=== PATIENT | female | born 1990 | race Caucasian/White ===

== ENCOUNTER 2021-02-02 11:29 | Emergency (ER) | payer OTHER, SELFPAY ==
[2021-02-02 11:34] VITALS: BP 132/86; PULSE 79; RESP 18; TEMP 36.5; O2SAT 98; BMI 23.9
--- NOTE | 2021-02-02 11:40 | DI.RAD.S_ITS ---
PROCEDURE: XR CHEST 1V INDICATIONS: chest pain TECHNIQUE: One view of the chest was acquired. COMPARISON: None. FINDINGS: Surgical changes and devices: None. Lungs and pleura: Lungs are clear. No pleural effusions or pneumothorax. Mediastinum: Mediastinal contours appear normal. Heart size is normal. Bones and chest wall: No suspicious bony lesions. Overlying soft tissues appear unremarkable. IMPRESSION: No acute cardiopulmonary abnormality. Dictated by: Quinton De Los Santos M.D. on 02/02/2021 at 11:19 Approved by: Quinton De Los Santos M.D. on 02/02/2021 at 11:19
[2021-02-02 12:22] LABS: Add Manual Diff / Slide Review NO; Basophils Absolute Auto 0 /uL (0-100); Basophils Percent Auto 0.7 % (0-2); Eosinophils Absolute Auto 0 /uL (0-450); Eosinophils Percent Auto 0.1 % (2-4); Hematocrit 39.7 % (36-46); Hemoglobin 13.5 g/dL (12.0-16.0); Lymphocytes Absolute Auto 700 /uL (1100-4500); Mean Corpuscular HGB Conc 33.9 % (30-36); Mean Corpuscular Hemoglobin 31.5 PG (26-34); Mean Corpuscular Volume 92.9 fL (80-100); Monocytes Absolute Auto 600 /uL (0-900); Monocytes Percent Auto 16.9 % (3-14); Neutrophils Absolute Auto 2000 /uL (1500-7000); Neutrophils Percent Auto 60.3 % (50-75); Platelet Count 177 X10^3/uL (150-400); Red Blood Cell Count 4.28 X10^6/uL (4.0-5.2); Red Cell Distribution Width 12.7 % (11.6-14.8); White Blood Cell Count 3.3 X10^3/uL (4.5-11.0)
[2021-02-02 12:29] LABS: Alanine Aminotransferase 15 IU/L (<35); Albumin 4.3 g/dL (3.5-5.0); Albumin Globulin Ratio 1.4 (1.0-2.8); Alkaline Phosphatase 48 U/L (38-126); Aspartate Aminotransferase 31 IU/L (14-36); BUN Creatinine Ratio 13.4 (6-22); Bilirubin Total 0.3 mg/dL (0.2-1.3); Blood Urea Nitrogen 13 mg/dL (7-17); Calcium 9.3 mg/dL (8.4-10.2); Carbon Dioxide 28 mmol/L (22-32); Chloride 105 mmol/L (98-107); Creatine Kinase 58 U/L (30-135); Estimated Glomerular Filt Rate > 60.0 mL/min (>60); Globulin 3.1 g/dL (1.7-4.1); Glucose 102 mg/dL (70-100); HEMOLYSIS < 15 (0-50); Lipase 136 U/L (23-300); Magnesium 2.1 mg/dL (1.6-2.3); Potassium 4.3 mmol/L (3.4-5.1); Sodium 137 mmol/L (137-145); Total Protein 7.4 g/dL (6.3-8.2)
[2021-02-02 12:39] LABS: Troponin I < 0.012 ng/mL (0.01-0.034)
[2021-02-02 12:44] LABS: COVID19 -Nasal RAPID POSITIVE (Negative)
[2021-02-02 12:47] LABS: Bacteria Urine Many (>30); Culture Indicated Urine Specimen Cultured; Mucus Urine 2+ (Negative); RBC Urine None Seen (0-5/HPF); Squamous Epithelial Cell Urine 1-5 /HPF (0-5/HPF); WBC Urine 1-5/HPF (0-5/HPF)
[2021-02-02 15:02] LABS: D Dimer < 200 ng/mL (<230)
--- NOTE | 2021-02-02 15:11 | ED.SYNCOPE ---
HPI - Syncope General Chief Complaint: Syncope Stated Complaint: fell needs stitches on chin Time Seen by Provider: 02/02/21 14:37 Source: patient Mode of arrival: Ambulatory Limitations: no limitations History of Present Illness HPI narrative: This is a 30-year-old female comes emergency department with complaint of syncope. Patient states she got up this morning which take a bath. When she got out of the water she felt lightheaded. She states she passed out she thinks for couple seconds. Her fiance heard her fall went into the room she was awake. She states she is little bit sweaty moved her to the bedroom open the window. She started to feel better. She has laceration on the bottom side of her chin. Patient states she has some pain jaw but has movement and can bite down. She has had 1 prior syncopal episode when on a treadmill and bending over to pickling grader a water bottle and when she stood up fell backwards and passed out. She denies any chest pain or pressure today. No shortness of breath. She has not any additional diaphoresis. She denies any fevers. No cold cough or congestion. No nausea or vomiting. No diarrhea. No numbness, tingling or weakness. Denies any neck or back pain. She is on oral contraceptives. Denies any past surgical history. No allergies. No tobacco, alcohol or illicit. Related Data Home Medications Medication Instructions Recorded Confirmed norethindrone acetate 1.5 1 tab PO DAILY 12/01/18 12/01/18 mg-ethinyl estradiol 30 mcg tablet (Microgestin) Allergies Allergy/AdvReac Type Severity Reaction Status Date / Time No Known Drug Allergies Allergy Verified 02/02/21 11:34 Review of Systems Review of Systems ROS Unobtainable: All systems reviewed & are unremarkable except as noted in HPI and below Patient History Medical History Abnormal Pap smear of cervix Surgical History Anesthesia [place] teeth removed (~11/2018) Family History Grandfather Diabetes mellitus Grandmother Hyperlipidemia Hypertension Social History Smoking Status: Never smoker Smoking Status: Never smoker alcohol intake frequency: holidays/special occasions only Substance Use Type: does not use Exam Narrative Exam Narrative: GEN: well nourished, well appearing female, alert and oriented x 3, patient appears to be in mild distress. HEENT: Atraumatic, pupils are equal round reactive to light, extraocular movements are intact, nares are clear, TMs are clear with no fluid, there is no conjunctival pallor. Throat is clear without any exudates, erythema, tonsillar enlargement or uvular deviation, patient does not have any bony tenderness on palpation of the facial bones. No malocclusion. Patient has a laceration on the underside of her chin that is about 2.5 cm in length. It does subcutaneous tissue and gapped. HEART: Regular rate and rhythm without murmur, clicks, rubs. Pulses are equal in upper extremities LUNGS:Lungs clear to auscultation, no wheezes, rales, crackles, chest moves symmetrically ABD:bowel sounds normal, soft, non-tender, no guarding, rebound, rigidity, no masses noted, no hepatosplenomegaly :No CVA tenderness BACK: No cervical, thoracic or lumbar vertebral point tenderness. Patient has normal range of motion. Patient's gait is normal. MSCL: Non-tender, no muscle atrophy, muscles strength 5/5 upper and lower extremities, full range of motion, normal gait NEURO:CN 2-12 intact, sensation normal SKIN: see above. Initial Vital Signs Initial Vital Signs: Vital Signs Temperature 97.7 F 02/02/21 11:34 Pulse Rate 79 02/02/21 11:34 Respiratory Rate 18 02/02/21 11:34 Blood Pressure 132/86 02/02/21 11:34 Pulse Oximetry 98 02/02/21 11:34 Procedures Laceration Repair Laceration 1: Time of procedure: 16:12 Site: face (chin) Size (cm): 2.5 Description: linear and irregular Depth: simple, single layer Local Anesthetic: lidocaine 1% Amount of anesthesia used (mL): 2 Pre-repair: wound explored, irrigated extensively and deep structures intact Skin layer closed with: vicryl Size (cm): 4-0 Number of sutures: 4 Technique: simple, interrupted Scores GCS Brittny coma scale eye opening: Spontaneous Frederic coma scale verbal response: Orientated Frederic coma scale motor response: Obey commands Brittny coma scale total score: 15 Course Orders Ordered: ED Orders 02/02/21 11:40 XR chest 1V Stat EKG-12 Lead Stat 02/02/21 11:45 COVID19 -Nasal swab/Pre-Proc Stat 02/02/21 11:50 Complete Blood Count AUTO DIFF Stat Comprehensive Metabolic Panel Stat D Dimer Stat Lipase Stat Magnesium Stat Troponin & CK Cardiac Panel Stat 02/02/21 11:55 Urine Culture Stat Urine Culture Stat Urine Microscopic Stat Discontinued Medications Lidocaine/Sodium Bicarbonate (Lido 1%/Sod Bicarb 8.4% (10ml) 10 Ml Syringe) 10 ml INJ NOW ONE Stop: 02/02/21 15:27 Last Admin: 02/02/21 15:40 Dose: 10 ml Documented by: MAC Vital Signs Vital signs: Vital Signs - 8 hr 02/02/21 11:34 02/02/21 16:22 Temperature 97.7 F Pulse Rate 79 81 Respiratory Rate 18 16 Blood Pressure 132/86 146/82 H Pulse Oximetry 98 97 MDM - Syncope Lab Data Result diagrams: 02/02/21 11:50 02/02/21 11:50 Labs: Lab Results 02/02/21 02/02/21 02/02/21 Range/Units 11:45 11:50 11:50 WBC 3.3 L (4.5-11.0) X10^3/uL RBC 4.28 (4.0-5.2) X10^6/uL Hgb 13.5 (12.0-16.0) g/dL Hct 39.7 (36-46) % MCV 92.9 (80-100) fL MCH 31.5 (26-34) PG MCHC 33.9 (30-36) % RDW 12.7 (11.6-14.8) % Plt Count 177 (150-400) X10^3/uL Neut % (Auto) 60.3 (50-75) % Lymph % (Auto) 22.0 L (25-40) % [place] % (Auto) 16.9 H (3-14) % Eos % (Auto) 0.1 L (2-4) % Baso % (Auto) 0.7 (0-2) % Neut # (Auto) 2000 (1937-4948) /uL Lymph # (Auto) 700 L (3280-3690) /uL [place] # (Auto) 600 (0-900) /uL Eos # (Auto) 0 (0-450) /uL Baso # (Auto) 0 (0-100) /uL D-Dimer (<230) ng/mL Sodium 137 (137-145) mmol/L Potassium 4.3 (3.4-5.1) mmol/L Chloride 105 (98-107) mmol/L Carbon Dioxide 28 (22-32) mmol/L BUN 13 (7-17) mg/dL Creatinine 0.97 (0.52-1.04) mg/dL Estimated GFR > 60.0 (>60) mL/min BUN/Creatinine Ratio 13.4 (6-22) Glucose 102 H (70-100) mg/dL Calcium 9.3 (8.4-10.2) mg/dL Magnesium 2.1 (1.6-2.3) mg/dL Total Bilirubin 0.3 (0.2-1.3) mg/dL AST 31 (14-36) IU/L ALT 15 (<35) IU/L Alkaline Phosphatase 48 (38-126) U/L Total Creatine Kinase 58 (30-135) U/L CK-MB (CK-2) TNP CK-MB (CK-2) Rel Index TNP Troponin I < 0.012 (0.01-0.034) ng/mL Total Protein 7.4 (6.3-8.2) g/dL Albumin 4.3 (3.5-5.0) g/dL Globulin 3.1 (1.7-4.1) g/dL Albumin/Globulin Ratio 1.4 (1.0-2.8) Lipase 136 (23-300) U/L Urine RBC (0-5/HPF) Urine WBC (0-5/HPF) Ur Squamous Epith Cells (0-5/HPF) Urine Bacteria (None) Urine Mucus (Negative) Ur Culture Indicated? SARS-CoV-2 (PCR) Positive H (Negative) 02/02/21 02/02/21 Range/Units 11:50 11:55 WBC (4.5-11.0) X10^3/uL RBC (4.0-5.2) X10^6/uL Hgb (12.0-16.0) g/dL Hct (36-46) % MCV (80-100) fL MCH (26-34) PG MCHC (30-36) % RDW (11.6-14.8) % Plt Count (150-400) X10^3/uL Neut % (Auto) (50-75) % Lymph % (Auto) (25-40) % [place] % (Auto) (3-14) % Eos % (Auto) (2-4) % Baso % (Auto) (0-2) % Neut # (Auto) (2924-5207) /uL Lymph # (Auto) (9379-9162) /uL [place] # (Auto) (0-900) /uL Eos # (Auto) (0-450) /uL Baso # (Auto) (0-100) /uL D-Dimer < 200 (<230) ng/mL Sodium (137-145) mmol/L Potassium (3.4-5.1) mmol/L Chloride (98-107) mmol/L Carbon Dioxide (22-32) mmol/L BUN (7-17) mg/dL Creatinine (0.52-1.04) mg/dL Estimated GFR (>60) mL/min BUN/Creatinine Ratio (6-22) Glucose (70-100) mg/dL Calcium (8.4-10.2) mg/dL Magnesium (1.6-2.3) mg/dL Total Bilirubin (0.2-1.3) mg/dL AST (14-36) IU/L ALT (<35) IU/L Alkaline Phosphatase (38-126) U/L Total Creatine Kinase (30-135) U/L CK-MB (CK-2) CK-MB (CK-2) Rel Index Troponin I (0.01-0.034) ng/mL Total Protein (6.3-8.2) g/dL Albumin (3.5-5.0) g/dL Globulin (1.7-4.1) g/dL Albumin/Globulin Ratio (1.0-2.8) Lipase (23-300) U/L Urine RBC None seen (0-5/HPF) Urine WBC 1-5/hpf (0-5/HPF) Ur Squamous Epith Cells 1-5 /hpf (0-5/HPF) Urine Bacteria Many (>30) H (None) Urine Mucus 2+ H (Negative) Ur Culture Indicated? Specimen cultured SARS-CoV-2 (PCR) (Negative) Point of Care Testing Test Results Negative Urine Dip Bedside Urine Glucose Negative Bedside Urine Bilirubin - Negative Bedside Urine Ketone - Negative Urine Specific [place] 1.025 Bedside Urine Occult Blood - Negative Bedside Urine pH 6.5 Bedside Urine Protein + 30 Bedside Urine Urobilinogen - Negative Bedside Urine Nitrite - Negative Bedside Urine Leukocytes - Negative Esterase Imaging Data Chest x-ray: Radiologist's Impression: [address] [address] XRay Report Signed Patient: Amanda Velazquez MR#: [id number] : 1990 Acct:[id number] Age/Sex: 30 / F Date of Service: 02/02/21 Loc: ED Accession Number: [id number] ?? Procedure: XR chest 1V Ordering Provider: Cheyanne Morton D.O. PROCEDURE:? XR CHEST 1V ? INDICATIONS:? chest pain ? TECHNIQUE:? One view of the chest was acquired.? ? COMPARISON:? None. ? FINDINGS:? ? Surgical changes and devices:? None.? ? Lungs and pleura:? Lungs are clear.? No pleural effusions or pneumothorax.? ? Mediastinum:? Mediastinal contours appear normal.? Heart size is normal.? ? Bones and chest wall:? No suspicious bony lesions.? Overlying soft tissues appear unremarkable.? ? IMPRESSION:? No acute cardiopulmonary abnormality. ? ? Dictated by: Quinton De Los Santos M.D. on 02/02/2021 at 11:19 ? ? Approved by: Quinton De Los Santos M.D. on 02/02/2021 at 11:19?? ECG Data Attestation: I personally reviewed and interpreted this ECG as follows: Prior ECG tracings: not available for review Interpretation: Sinus rhythm with sinus arrhythmia. Rate of 78 ME 120 QRS 74 QTC 460. Three of inversion in lead 3. No other T-wave changes noted. MDM Narrative Medical decision making narrative: This is a 30-year-old female who had a syncopal episode after being in the bath earlier today. She felt lightheaded when she was getting up. She passed out her chin. She had likely very short episode of loss of consciousness. Her fiance was in the house heard her fall immediately into the room and states she was awake when he came in. He moved her to the other. She has had minimal symptoms but is COVID positive today. She is not tachycardic, not hypoxic or hypotensive. Her EKG, chest x-ray and labs are reassuring. She is unvaccinated. She does not meet criteria for monoclonal antibodies as an outpatient. Patient D-dimer is negative. She he patient is able to ambulate without issue here in the department. Her laceration was repaired all questions answered. Patient was cautioned to return if any additional symptoms or concerning changes. Discharge Plan Departure Patient Disposition: Home Clinical Impression: COVID-19 virus infection, Chin laceration, Syncope Instructions: DI for Laceration Repair -- Simple, DI for COVID-19 (Suspected or Confirmed ) Activity Restrictions/Additional Instructions: *You have been diagnosed with covid infection. If you wish you may obtain a pulse oximeter for use at home to monitor. Please return to the ER if your pulse oximeter shows an O2 saturation less than 94%. You have 4 sutures present but they are absorbable and should not require removal. Wound Care: Keep wound(s) clean and dry. Wash daily with soap and water only. Do not use over the counter products (alcohol or peroxide)on the wounds unless instructed by a physician. If wound condition worsens (increased/expanding redness, developing fluid blisters, or worsening pain), either contact your doctor for an urgent re-assessment , or return to the Emergency Department. Return to the Emergency Department for any new or worsening symptoms. Return if fever greater than 100.4 Fahrenheit, increased swelling, increasing pain or worsening symptoms such as increased discharge or spreading redness. Severe headaches, chest pain, shortness of breath, vomiting, worsening pain anterior chin or jaw. *What to do: * per recommendations from the CDC and the [facility] Department of Health * stay home except to get medical care. Restrict activities outside your home, except for getting medical care. Do not go to work, school, or public areas. Avoid using public transportation, ride sharing, or taxis. * separate yourself from other people in your home. * call ahead before visiting your doctor * Wear a face mask * Cover your coughs and sneezes * Clean your hands often * Avoid sharing household items * Clean all high-touch services every day * Monitor your symptoms and seek prompt medical attention if your illness is worsening, particularly with difficulty in breathing. Discussed continuing home isolation * for individuals with symptoms who are confirmed or suspected cases of COVID-19 and are directed to care for themselves at home, discontinue home isolation under the following conditions: 1. At least 72 hours have passed since recovery, defined as resolution of fever without the use of fever reducing medications, and improvement in respiratory symptoms (cough, shortness of breath) AND, 2. At least 7 days have passed since symptoms 1st appeared Individuals with laboratory confirmed COVID-19 who have not had any symptoms may discontinue home isolation when at least 7 days have passed since the date of their 1st COVID-19 diagnostic test and have had no subsequent illness Prescriptions: No Action Microgestin 1.07/09 (21) 1.5-30 mg-mcg tablet 1 tab PO DAILY 0RF Referrals: Elisha Jovel PA-C [Primary Care Provider] -
[2021-02-02] MEDS: LIDO 1%/SOD BICARB 8.4% (10ML) 10 ML SYRINGE INJ (15:40)
[2021-02-02 16:22] VITALS: BP 146/82; PULSE 81; RESP 16; O2SAT 97
== END 2021-02-02 16:22 | disposition home or self-care (01) ==
PROVIDERS: Emergency Provider Emergency Medicine; PCP Physician Assistant
DX: S01.81XA Laceration without foreign body of other part of head, initial encounter (principal); R55 Syncope and collapse; U07.1 COVID-19; I49.8 Other specified cardiac arrhythmias; W18.30XA Fall on same level, unspecified, initial encounter
CPT/HCPCS: 12011; 36415; 71045; 80053; 81003; 81015; 81025; 82550; 83690; 83735; 84484; 85025; 85379; 87086; 87635; 93005; 99284; C9803

== ENCOUNTER → 2022-04-08 06:52 | Outpatient (CLI) | payer OTHER, SELFPAY ==
--- NOTE | 2022-04-08 | DI.US.S_ITS ---
PROCEDURE: US OB >= 14 WEEKS FETUS INDICATIONS: 20WK ANATOMY SCAN OUTSIDE/PRIOR DATING DATA: Last menstrual period (LMP): 11/25/2021. LMP-based estimated date of delivery (SCARLETT): 09/01/2022 First dating scan (date and location): 04/08/2022 Estimated date of delivery (SCARLETT) from first dating scan: 08/31/2022. The calculations are made using the study generated SCARLETT of 08/31/2022. TECHNIQUE: Real-time scanning was performed of the fetus, with image documentation and biometric measurements. Endovaginal scanning: Not indicated COMPARISON: None. FINDINGS: General: A single living intrauterine gestation is present. Presentation: Vertex Placenta: Placental position is posterior, without previa. Amniotic fluid index: 9.0 cm, normal range is 5-24 cm. Single deepest vertical pocket is 2.6 cm. heart rate: 130 beats per minute. Maternal cervical canal: 3.6 cm long. Normal lower limit is 2.5 cm. biometrics: Biparietal diameter: 4.5 cm, 19 weeks, 4 days. Head circumference: 16.9 cm, 19 weeks, 4 days. Abdominal circumference: 13.6 cm, 19 weeks, 0 day. Femur length: 3.0 cm, 19 weeks, 1 day. Clinically estimated gestational age: 19 weeks, 1 day Composite gestational age from present scan: 19 weeks, 2 days Estimated weight and percentile: 276 g, 45% Anatomic survey: Neuro: Ventricles are non-dilated at less than 10 mm. Cisterna magna is normal at 3-11 mm. Cerebellum is normal in size and morphology. Nuchal skin fold: Normal at less than 6 mm between 14-21 weeks gestational age. Face: Nose and lips, facial profile are normal. Spine: No evidence for spina bifida. Heart: 4-chambered heart is present, with normal ventricular outflow tracts. Diaphragm: Diaphragm is intact. Stomach: Left-sided stomach is present. Kidneys: No hydronephrosis. Normal is less than 5 mm in 2nd trimester, less than 7 mm in 3rd trimester. Cord: 3-vessel cord has orthotopic insertion. Bladder: Normal in size. Extremities: All 4 extremities identified. IMPRESSION: 1. Single live intrauterine gestation with fetus in vertex presentation. heart rate is 130 beats per minute. Normal amount of amniotic fluid. Normal growth. Estimated weight is at 45%. 2. Normal anatomic survey. We strive to produce accurate, complete, and clear reports of imaging services. To assist us in improving patient care, this report was composed using standard report templates and voice recognition software. Therefore, it may contain abnormal punctuation, insertions and/or omissions. Occasional wrong-word or sound-alike substitutions may occur. Though we review the report and make efforts to correct it, we do recommend that the report be read carefully in proper context to recognize any text inaccuracies. Dictated by: Abel Sandra M.D. on 04/08/2022 at 8:41 Approved by: Abel Sandra M.D. on 04/08/2022 at 8:43
== END ==
PROVIDERS: PCP Physician Assistant; Referring Provider Advanced Practice Midwife; Visit Provider Advanced Practice Midwife
DX: Z34.02 Encounter for supervision of normal first pregnancy, second trimester (principal); Z3A.19 19 weeks gestation of pregnancy
CPT/HCPCS: 76811

== ENCOUNTER 2022-08-29 16:48 | Inpatient (IN) | payer OTHER, SELFPAY ==
--- NOTE | 2022-08-29 17:07 | P.HPOB_ITS ---
OB HPI Date/Time Date of admission: 08/29/22 Date Patient Seen: 08/29/22 Time Patient Seen: 17:07 History of Present Condition Chief complaint: OB CHECK : 1 Para: 0 Estimated Date of Delivery: 09/01/22 Estimated Gestational Age (weeks): 39.4 Narrative: Amanda Overton is a 31 year old female @ [id number] by LMP concordant with early US who presents for evaluation of PROM. Has been feeling mild, irregular contractions for 3 days. Noticed leaking of green fluid at 1530 today and then continued leaking of clear fluid. +FM. No vaginal bleeding. Uncomplicated care with CNMs until last appointment when she started measuring S<D for which she has a growth US scheduled tomorrow. Desires low intervention . is present and supportive. History of Present care: good care, initiated at week # (9), number of visits (9) and pounds weight gain (38) Dating criteria: LMP confirmed by 1st trimester US Ultrasounds: normal mid trimester US Obstetrical complications: none Medical complications: none Preadmission Labs Blood type: A (+) positive -: Antibody screen: negative, GBS status: positive, HBsAG: negative, HIV: negative and RPR/VDLR: negative -: Chlamydia screen: not detected and Gonorrhea screen: not detected -: Rubella: immune and Varicella: immune HCT: 37.2 HCAB: negative 1 hr GTT: 122 Evaluation Evaluation Baseline heart rate: 120 Variability: Moderate (11-25) monitor accelerations: Present Monitor Decelerations: Absent Contraction Frequency (minutes): 5 Uterine Contraction Intensity: Mild Status: Category l Dilation (cm): 3 Effacement (%): 80 station: -1 Comments: Clear fluid on pad and on glove with exam. [facility] Medical History Abnormal Pap smear of cervix Surgical History Anesthesia [place] teeth removed (~11/2018) Family History Grandfather Diabetes mellitus Grandmother Hyperlipidemia Hypertension Social History (Reviewed 07/20/23 @ 17:19 by JANES Crow Smoking Status: Never smoker Meds Home Medications and Allergies Home Medications Medication Instructions Recorded Confirmed Type No Known Home Medications 08/29/22 08/29/22 History Allergies Allergy/AdvReac Type Severity Reaction Status Date / Time No Known Drug Allergies Allergy Verified 02/02/21 11:34 Review of Systems Review of Systems ROS: Yes All systems reviewed with the patient and are negative except as otherwise documented OB Exam Vital signs Blood Pressure: 136/91 Pulse Rate: 76 Temperature: 36.7 F Resp Effort & Inspection: normal respiratory effort and able to speak in complete sentences Auscultation: clear to auscultation bilaterally Cardio Rate: regular rate Rhythm: regular rhythm Heart Sounds: S1 normal and S2 normal Presentation: vertex Objective Labs 08/29/22 17:40 08/29/22 17:40 Assessment and Plan Assessment and Plan Assessment and Plan narrative: A: Term [place] PROM Suspected meconium stained amniotic fluid Antibioitcs indicated for GBS prophylaxis Elevate BP without diagnosis of HTN Cat II FHR P: Admit, routine orders with preeclampsia panel added to admission labs. 500mL LR IVFB now. Ampicillin for GBS prophylaxis. Counseled on options for active vs expectant management of PROm and she elects expectant management. Counseled patient on recommendation to remain on unit given possible meconium staining of fluid. Patient declines this and asks to go back home for a few hours before her next dose of antibiotics. As long as FHR remain Cat I during ampicillin administration, patient may walk and return in 2 hours since she is not yet in active labor. Encouraged her to return HIRAM if meconium stained fluid or decreased FM noted and she agrees.
[2022-08-29 17:23] VITALS: BP 136/91; PULSE 76; TEMP 2.6; TEMP 36.7
[2022-08-29] MEDS: LACTATED RINGERS 1,000 ML 100 ML IV (17:40)
[2022-08-29 18:01] LABS: Add Manual Diff / Slide Review NO; Basophils Absolute Auto 100 /uL (0-100); Basophils Percent Auto 0.6 % (0-2); Eosinophils Absolute Auto 0 /uL (0-450); Eosinophils Percent Auto 0.4 % (2-4); Hematocrit 38.2 % (36-46); Lymphocytes Absolute Auto 1700 /uL (1100-4500); Lymphocytes Percent Auto 17.6 % (25-40); Mean Corpuscular HGB Conc 33.9 % (30-36); Mean Corpuscular Hemoglobin 30.8 PG (26-34); Mean Corpuscular Volume 91.1 fL (80-100); Monocytes Absolute Auto 800 /uL (0-900); Monocytes Percent Auto 7.9 % (3-14); Neutrophils Absolute Auto 7100 /uL (1500-7000); Neutrophils Percent Auto 73.5 % (50-75); Platelet Count 208 X10^3/uL (150-400); Red Cell Distribution Width 12.5 % (11.6-14.8); White Blood Cell Count 9.6 X10^3/uL (4.5-11.0)
[2022-08-29] MEDS: AMPICILLIN 2,000 MG in SODIUM CHLORIDE 0.9% 100 ML 200 MG IV (18:04)
[2022-08-29 18:07] LABS: Aspartate Aminotransferase 36 IU/L (14-36); Blood Urea Nitrogen 11 mg/dL (7-17); Estimated Glomerular Filt Rate > 60 mL/min (>60); Uric Acid 5.1 mg/dL (2.5-6.2)
[2022-08-29 19:56] VITALS: BP 133/86
[2022-08-29] MEDS: AMPICILLIN 1,000 MG in SODIUM CHLORIDE 0.9% 100 ML 200 MG IV (21:57)
--- NOTE | 2022-08-30 01:27 | PM.OBPNLAB ---
Date/Time Date Patient Seen: 08/29/22 Time Patient Seen: 22:00 Pain Control Pain control: tolerating well Comments: Went home and ate and took a nap, now back for her second dose of antibioitcs. If everything baby's heart rate and her vital signs are good, she plans to leave again after this dose is completed and return before the next dose is due. Continues to leak scant amounts of clear fluid. VS: BP 131/84, HR 68bpm, T 36.5C Tmporal Pelvic Exam Effacement (%): 80 station: -1 Comments: CE deferred, not in labor Contractions Monitor mode: External Pitocin rate (mU/min): 0 Contraction frequency (min): 5 Contraction duration (min): 1 Contraction pattern: Irregular Contraction intensity: Mild Status status: Category l Heart Rate Baseline: 120 Monitor Accelerations: Present Monitor Decelerations: Absent Monitor Variability: Moderate Assessment and Plan Assessment: other (PROM x 6.5 hours without sx of infection, not in labor) Comments: Encouraged patient to stay on unit and patient strongly declines. She agrees to come back for next dose of antibiotics and sooner, if concern for movement, change in fluid or fever. Reassess in 4 hours .
--- NOTE | 2022-08-30 02:01 | PM.OBPNLAB ---
Date/Time Date Patient Seen: 08/30/22 Time Patient Seen: 02:01 Pain Control Pain control: tolerating well Comments: Was able to go home and take a nap. Continues to contract mildly, but doesn't feel like there's been much change. Continues leak clear fluid. Strongly desires to go home again between doses of antibioitcs. VS: 123/75mmhg, HR 66, T 36.6C Temporal Pelvic Exam Dilation (cm): 3 Effacement (%): 80 station: -1 Comments: CE deferred, not in labor Contractions Monitor mode: External Contraction frequency (min): 8 Contraction duration (min): 1 Contraction pattern: Irregular Contraction intensity: Mild Status status: Category l Heart Rate Baseline: 115 Monitor Accelerations: Present Monitor Decelerations: Absent Monitor Variability: Moderate Assessment and Plan Assessment: other (PROM x11 hours without sx of infection) Plan: continuous present management Comments: Continue expectant management of PROM with GBS prophylaxis @ q4 hours. Patient plans to leave and return before next dose is due and is aware of reasons to return sooner. Reassess in 4 hours or sooner, PRN.
[2022-08-30] MEDS: AMPICILLIN 1,000 MG in SODIUM CHLORIDE 0.9% 100 ML 200 MG IV ×4 (02:03→14:12)
--- NOTE | 2022-08-30 06:47 | PM.OBPNLAB ---
Date/Time Date Patient Seen: 08/30/22 Time Patient Seen: 06:30 Pain Control Pain control: tolerating well Comments: Was again able to sleep at home and feels ready for labor. Leaking fluid remains clear. No vaginal bleeding. Partner is supportive at her side. VS: BP 118/72, HR 66bpm, T 36.7C Temporal Pelvic Exam Dilation (cm): 3 Effacement (%): 80 station: -1 Comments: deferred, not in labor Contractions Monitor mode: External Pitocin rate (mU/min): 0 Contraction frequency (min): 14 Contraction duration (min): 2 Contraction pattern: Regular Contraction intensity: Mild Status status: Category l Heart Rate Baseline: 120 Monitor Accelerations: Present Monitor Decelerations: Absent Assessment and Plan Assessment: other (PROM x27 hours without sx of infection) Comments: PCN dose #4 started. Discussed options again and patient continues to decline pitocin and elects to begin pumping to help increase contractions. Patient agrees to stay in house, except for walks, at this point. Reassess in 4 hours or sooner, PRN.
--- NOTE | 2022-08-30 13:31 | PM.OBPNLAB ---
Date/Time Date Patient Seen: 08/30/22 Time Patient Seen: 13:32 Pain Control Pain control: tolerating well Comments: Ate breakfast at 0830 and then did one cycle of breast pumping x 20 minutes. Contractions slowly progressed in frequency and intensity, becoming strong at 1130. She labored in the shower and then the tub with mild relief. Coping well with her providing continuous labor support. Now on hands and knees with the CUB in the bed, consenting to CE. VS: BP 128/66mmHg, HR 75bpm, T 97.7F Temporal Pelvic Exam Dilation (cm): 6 Effacement (%): 100 station: 0 Amniotic membrane status: Leaking (clear) Contractions Monitor mode: External Pitocin rate (mU/min): 0 Contraction frequency (min): 3 Contraction duration (min): 1 Contraction pattern: Regular Contraction intensity: Strong/Firm Status Heart Rate Baseline: 115 Comments: FHR remains reassuring by intermittent auscultation. Assessment and Plan Assessment: active labor and other (PROM x22 hours without sx of infection, Adequate GBS prophylaxis x 5 doses of PCN) Comments: Continue expectant management of labor. Labor support PRN. Reassess in 4 hours or sooner, PRN.
--- NOTE | 2022-08-30 17:49 | PM.OBPRVD ---
Events: Premature Rupture Membrane Labor & Delivery Delivery date: 08/30/22 Intrapartal Events: None Cervical ripening method: none Induction method: other (nipple stimulation) Delivery monitor: external FHT Route of delivery: L&D Laceration Description: Superficial Quantitative Blood Loss: 302 Anesthesia Type: Epidural Narrative: Jg labored well without augmentation or anesthesia. Presumed complete with spontaneous urge to push at 1544. Slow descent with strong maternal efforts and coaching. Reassuring FHTs by intermittent auscultation throughout labor and second stage. NSVB of a vigorous baby boy in LACI position with a compound right hand, single loose nuhal cord and easy delivery of the shoulders. Patient was standing at the bedside for the and her son was passed through her legs to her arms by CNM and FOB, then she was assisted into bed with her son in her arms. 30 units of pitocin in 500mL LR was started at 250mL/hr for AMTSL. After cessation of pulsation, the cord was double clamped by CNM and cut by FOB. Cord blood hold sample was collected. Gentle cord traction, a maternal push and fundal assage led to spontaneous, Schultze delivery of an apparently intact placenta, membranes and 3VC. Fundus immediately firm and bleeding scant. Inspection revealed a hemostatic, superficial laceration to the right labia and introitus. QBL 302. Both mother and baby stable and skin to skin as I left the room. [place] Baby 1: Infant gender: Male Presentation: vertex Position: Left Occiput Anterior Placenta delivery description: Spontaneous Cord Vessel Description: 3 Vessels, Nuchal Cord and Loose score (1 min): 7 score (5 min): 9 weight: 2.816 kg Plan for aftercare: Routine care
[2022-08-30] MEDS: KETOROLAC 30 MG/ML VIAL IV (18:50)
[2022-08-31] MEDS: IBUPROFEN 600 MG TABLET PO (07:57)
--- NOTE | 2022-08-31 12:39 | P.DS_ITS ---
Discharge Providers Provider Date of admission: 08/29/22 16:48 Discharge Date: 08/31/22 Primary care physician: Elisha Jovel PA-C Consults: 08/31/22 17:47 Consult to Anesthesiologist/Physician Routine Comment: Discharge provider: Mirian Torres CNM Summary Hospital Course Date Patient Seen: 08/31/22 Time Patient Seen: 12:40 Diagnoses: O80 Hospital Course: PPD1: Stable s/p unmedicated NSVB. Voiding, ambulating and independently. Tolerating a general diet. is going well with no nipple tenderness. Vaginal bleeding is moderate without clots. Pain is well controlled with ibuprofen and Tylenol. Partner is present and supportive and she will have lots of help at home. Peripartum Data Delivery Method: Natural Vaginal Laceration Description: None Episiotomy description: None Procedures: O80 complications: none 1: Gender: Male Disposition of : home Discharge Diagnosis (1) Encounter for full-term uncomplicated delivery: Status: Acute Problem Details: Routine course (2) PROM with onset of labor within 24 hours of rupture: Status: Acute Status at Discharge Cognitive/behavioral status at discharge: oriented Functional status at discharge: independent ambulation Overall status at discharge: patient is progressing back to baseline Time Spent with Patient Time attestation: Total time spent providing and/or coordinating discharge services: Objective Labs 08/29/22 17:40 08/29/22 17:40 Exam Vital Signs (past 8 hours): BP 113/62mmHg, HR 64, RR 17, T 97.6F Temporal Other: Fundus firm @ u-1, lochia normal, without clots. Perineum intact with mild edema. Discharge Plan Discharge Plan Patient Disposition: Home Discharge orders & Medications Prescriptions: New ibuprofen 600 mg Tablet 600 mg PO Q6HR PRN (Reason: Pain, Mild (1-3)) 14 Days Qty: 60 0RF No Action No Known Home Medications Follow up/Referrals: Mirian Torres CNM [[facility]] - (Follow-up phone call 09/13/22 @ 10:00am Follow-up in office 10/11/22 @ 09:45am ) Elisha Jovel PA-C [Primary Care Provider] - Diet/Activity/Treatments Diet: Diet as Tolerated and Regular Activity: pelvic rest x 6 weeks Skin/Wound/Dressing Care Report to your healthcare provider any signs of infection, such as:: chills, fever, increased pain, unusual drainage and unusual redness Visit Report/Discharge Packet Instructions: DI for Depression Stand Alone Forms: Patient Portal/API, Stroke Signs & Symptoms Discharge Data Primary Care Provider: Elisha Jovel
== END 2022-08-31 14:00 | disposition home or self-care (01) | DRG 807 ==
PROVIDERS: Admitting Provider Nurse Practitioner Obstetrics & Gynecology; PCP Physician Assistant; Referring Provider Nurse Practitioner Obstetrics & Gynecology; Visit Provider Nurse Practitioner Obstetrics & Gynecology
DX: O42.12 Full-term premature rupture of membranes, onset of labor more than 24 hours following rupture (principal); Z37.0 Single live birth; Z3A.39 39 weeks gestation of pregnancy; O99.824 Streptococcus B carrier state complicating childbirth
CPT/HCPCS: 36415; 59050; 84450; 84550; 85025; 86850; 86900; 86901; G0379; J0290; J1885

== ENCOUNTER → 2023-10-21 13:36 | Outpatient (CLI) | payer SELFPAY ==
[2023-10-21 14:34] LABS: HCG Quantitative /Beta subunit 14829 mIU/mL
== END ==
PROVIDERS: Referring Provider Nurse Practitioner Obstetrics & Gynecology; Visit Provider Nurse Practitioner Obstetrics & Gynecology
DX: N91.2 Amenorrhea, unspecified (principal)
CPT/HCPCS: 36415; 84702

== ENCOUNTER → 2023-10-22 12:04 | Outpatient (CLI) | payer SELFPAY ==
--- NOTE | 2023-10-22 12:10 | DI.US.S_ITS ---
PROCEDURE: US OB <= 14 WEEKS FETUS INDICATIONS: DATING AND VIABILITY. IUD KYLEENA SURVEILLANCE (1 YEAR). OUTSIDE/PRIOR DATING DATA: Last menstrual period (LMP): 09/11/2023. LMP-based estimated date of delivery (SCARLETT): 06/17/2024. First dating scan (date and location): 10/22/2023. Estimated date of delivery (SCARLETT) from first dating scan: 06/17/2024. TECHNIQUE: Real-time scanning was performed of the fetus and maternal pelvic organs, with image documentation. Endovaginal scanning was also performed to better visualize the fetus and maternal ovaries. COMPARISON: None. FINDINGS: Embryo: Single live intrauterine is identified with crown-rump length measuring 3 mm corresponding to 5 weeks 6 days Heart rate: 106 beats per minute Suspected small perigestational hemorrhage measuring 9 mm. IUD is not visualized. Maternal organs: Ovaries demonstrate left corpus luteal cyst.. IMPRESSION: Single live intrauterine with gestational age today of 5 weeks 6 days. No visualized IUD. Recommend followup imaging at 20-22 weeks for dates and anatomy. We strive to produce accurate, complete, and clear reports of imaging services. To assist us in improving patient care, this report was composed using standard report templates and voice recognition software. Therefore, it may contain abnormal punctuation, insertions and/or omissions. Occasional wrong-word or sound-alike substitutions may occur. Though we review the report and make efforts to correct it, we do recommend that the report be read carefully in proper context to recognize any text inaccuracies. Dictated by: Radha Arnold M.D. on 10/22/2023 at 17:03 Approved by: Radha Arnold M.D. on 10/22/2023 at 17:04
== END ==
PROVIDERS: Referring Provider Nurse Practitioner Obstetrics & Gynecology; Visit Provider Nurse Practitioner Obstetrics & Gynecology
DX: Z34.91 Encounter for supervision of normal pregnancy, unspecified, first trimester (principal); Z3A.01 Less than 8 weeks gestation of pregnancy; Z30.431 Encounter for routine checking of intrauterine contraceptive device
CPT/HCPCS: 76801; 76817

== ENCOUNTER → 2024-01-29 11:04 | Outpatient (CLI) | payer OTHER, SELFPAY ==
--- NOTE | 2024-01-29 | DI.US.S_ITS ---
PROCEDURE: US OB >= 14 WEEKS FETUS INDICATIONS: 20wk anatomy scan OUTSIDE/PRIOR DATING DATA: Last menstrual period (LMP): 09/11/2023. LMP-based estimated date of delivery (SCARLETT): 06/17/2024. First dating scan (date and location): 10/22/2023. Estimated date of delivery (SCARLETT) from first dating scan: 06/17/2024. The calculations are made using the ultrasound and working SCARLETT of 06/17/2024. TECHNIQUE: Real-time scanning was performed of the fetus, with image documentation and biometric measurements. Endovaginal scanning: Not performed COMPARISON: [facility], , OB >= 14 WEEKS FETUS, 04/08/2022, 7:00. FINDINGS: General: A single living intrauterine gestation is present. Presentation: Vertex. Placenta: Placental position is anterior, without previa. Amniotic fluid index: 13.6 cm, normal range is 5-24 cm. Single deepest vertical pocket is 4.0 cm. heart rate: 135 beats per minute. Maternal cervical canal: 3.8 cm long. Normal lower limit is 2.5 cm. biometrics: Biparietal diameter: 4.9 cm, 20 weeks 6 days Head circumference: 18.7 cm, 21 weeks 0 days Abdominal circumference: 16.6 cm, 21 weeks 4 days Femur length: 3.3 cm, 20 weeks 1 day Clinically estimated gestational age: 20 weeks 0 day Composite gestational age from present scan: 20 weeks 6 days Estimated weight and percentile: 389 g, 90 second percentile Anatomic survey: Neuro: Ventricles are non-dilated at less than 10 mm. Cisterna magna is normal at 3-11 mm. Cerebellum is normal in size and morphology. Nuchal skin fold: Normal at less than 6 mm between 14-21 weeks gestational age. Face: Nose and lips, facial profile are normal. Spine: No evidence for spina bifida. Heart: 4-chambered heart is present, with normal ventricular outflow tracts. Diaphragm: Diaphragm is intact. Stomach: Left-sided stomach is present. Kidneys: No hydronephrosis. Normal is less than 5 mm in 2nd trimester, less than 7 mm in 3rd trimester. Cord: 3-vessel cord has orthotopic insertion. Bladder: Normal in size. Extremities: All 4 extremities identified. IMPRESSION: 1. Living 2nd trimester intrauterine with no sonographic evidence of complications. Current ultrasound age is 6 days greater than clinical age. 2. Normal 2nd trimester anatomy study. We strive to produce accurate, complete, and clear reports of imaging services. To assist us in improving patient care, this report was composed using standard report templates and voice recognition software. Therefore, it may contain abnormal punctuation, insertions and/or omissions. Occasional wrong-word or sound-alike substitutions may occur. Though we review the report and make efforts to correct it, we do recommend that the report be read carefully in proper context to recognize any text inaccuracies. Dictated by: Sheng Oswald M.D. on 01/29/2024 at 21:12 Approved by: Sheng Oswald M.D. on 01/29/2024 at 21:15
== END ==
LOC: US 11:08
PROVIDERS: Referring Provider Nurse Practitioner Obstetrics & Gynecology; Visit Provider Nurse Practitioner Obstetrics & Gynecology
DX: Z34.92 Encounter for supervision of normal pregnancy, unspecified, second trimester (principal); Z3A.20 20 weeks gestation of pregnancy
CPT/HCPCS: 76811

== ENCOUNTER 2024-04-06 11:40 | Observation (INO) | payer OTHER, SELFPAY ==
[2024-04-06 11:58] LABS: Appearance Urine UA SL CLOUDY; Bilirubin Urine UA NEGATIVE (NEGATIVE); Color Urine UA YELLOW; Glucose Urine UA NEGATIVE (Negative); Ketones Urine UA NEGATIVE (NEGATIVE); Leukocyte Esterase Urine UA 3+ (NEGATIVE); Nitrite Urine UA NEGATIVE (Negative); Occult Blood Urine UA NEGATIVE (Negative); Protein Urine UA NEGATIVE (Negative); Urobilinogen Urine UA 0.2 E.U./dL (0.2)
[2024-04-06 12:01] LABS: Urine Volume 10mL (spun); pH Urine UA 6.5 (4.5-8.0)
[2024-04-06 12:02] LABS: Bacteria Urine Many (>30); Culture Indicated Urine Specimen Cultured; RBC Urine None Seen (0-5/HPF); Squamous Epithelial Cell Urine 5-10 /HPF (0-5/HPF); WBC Urine 10-30/HPF (0-5/HPF)
[2024-04-06] MEDS: TERBUTALINE 1 MG/ML VIAL 0.25 MG SUBCUT ×2 (12:26→17:31)
[2024-04-06] MEDS: BETAMETHASONE 30 MG/5 ML MDV 12 MG IM (12:28)
[2024-04-06] MEDS: LACTATED RINGERS 1,000 ML 1000 ML IV (12:33)
--- NOTE | 2024-04-06 12:42 | PM.OBHP.1 ---
OB HPI Date/Time Date of admission: 04/06/24 Date Patient Seen: 04/06/24 Time Patient Seen: 12:15 History of Present Condition Chief complaint: OBS : 2 Para: 1 Estimated Date of Delivery: 06/17/24 Estimated Gestational Age (weeks): 29.5 Narrative: Amanda Overton is a 33 year old female at 29weeks 5days. Messaged this am w/shandra barroso contractions with pain rated 8 out of 10, lasting 30 seconds every 5-10min with some light yellow discharge. Planning to come to clinic to be seen at noon. Called at 1122 CNM recommended going to hospital for evaluation. In triage at 1145 contractions every 4-9minutes, 40-60seconds, breathing through contractions. Present on the unit at 1145 contractions mild to moderate to palpate, not picked up well on toco; no rupture of membranes or bleeding. Urinalysis +Leuk estrase, +WBCs, denies dysuria, or urgency has frequency. FHR tracing category 2 with moderate variability and non-recurrent variable decelerations. History of Present care: good care, initiated at week # (8), number of visits (5) and pounds weight gain (25) Dating criteria: LMP confirmed by 1st trimester US Obstetrical complications: labor Medical complications: none Narrative: Speculum done for FFN, visible membranes, dark hair visible at os, SVE 4cm, BBOW, 90% effaced/mid position. Terbutaline subQ (given 1226), betamethasone x1 (1228), and ampicillin 2 g ordered stat and given, started at 1323. GBS swab collected. Magnesium sulfate 4 g bolus started at 1348. Consult with Dr Vidal. Spoke at 1229 to pediatric provider Taylor Wren at [facility], peds team activated with eta 1400. Recheck SVE at 1335: 3.5/90/-2/mid position. Called [facility], spoke to core cutter and reamer and Dr. Hernandez who accepted transfer. Ground transport not available for 4hours, so [facility] notified, and ETA 1530. [facility] team arrived at 1435, waiting until maternal transport team arrives. Preadmission Labs Blood type: A (+) positive -: Antibody screen: negative, GBS status: unknown (collected today), HBsAG: negative, HIV: negative, HSV 1: negative, HSV 2: negative and RPR/VDLR: negative -: Chlamydia screen: not detected and Gonorrhea screen: not detected -: Rubella: immune and Varicella: immune HCT: 37.4 HCAB: negative PAP: Normal (2021) Cell-free DNA: Negative for Trisomy 13, 18 and 21 1 hr GTT: 100 Prior (ies) History: at 39w5d Hx # Term Pregnancies: 1 Hx # Pregnancies: 0 Number of Living Children: 1 Multiple births: 0 Spontaneous abortions: 0 Ectopic pregnancies: 0 Elective abortions: 0 Evaluation Evaluation Baseline heart rate: 135 Variability: Moderate (11-25) monitor accelerations: Present Monitor Decelerations: Variable Contraction Frequency (minutes): 5 (1.5-7 x 30-60 sec) Uterine Contraction Intensity: Moderate Category of Tracing: Appropriate for gestational age Status: Category ll Dilation (cm): 3.5 Effacement (%): 90 Dilation: 3-4 cm Effacement: >/=80% station: -2 Position of cervix: mid Consistency: soft Winston score: 9 [facility] Medical History (Updated 04/06/24 @ 14:20 by Tara Jack CNM, RADHA) PROM with onset of labor within 24 hours of rupture Encounter for full-term uncomplicated delivery COVID-19 virus infection Abnormal Pap smear of cervix Surgical History Anesthesia [place] teeth removed (~11/2018) Family History Grandfather Diabetes mellitus Grandmother Hyperlipidemia Hypertension Social History Smoking Status: Never smoker Meds Home Medications and Allergies Allergies Allergy/AdvReac Type Severity Reaction Status Date / Time No Known Drug Allergies Allergy Verified 02/02/21 11:34 Review of Systems Review of Systems Narrative: as per HPI OB Exam Narrative Exam Narrative: VS: BP 132/81, HR 96, temp 35.8C, O2 sat 99% HENMT Head: normal to inspection and normocephalic Mouth: lip normal, tongue normal and moist mucous membranes Eyes General: appearance normal, both eyes and all related structures Resp Effort & Inspection: normal respiratory effort Auscultation: clear to auscultation bilaterally Cardio Rate: regular rate Rhythm: regular rhythm Heart Sounds: S1 normal and S2 normal Extremities Lower extremity: Yes normal to inspection GI Inspection: normal to inspection Palpation: Yes soft External Female Exam: Yes normal external appearance Speculum Exam - Vagina: Yes normal appearance of the vagina Speculum Exam - Cervix: cervical os open OB/External & Speculum: cervical os open Presentation: vertex Objective Labs 04/06/24 12:38 04/06/24 12:38 Labs: Laboratory Results - last 24 hr 04/06/24 11:47 Urine Color Yellow Urine Appearance Sl cloudy Urine pH 6.5 Ur Specific [place] 1.010 Urine Protein Negative Urine Glucose (UA) Negative Urine Ketones Negative Urine Occult Blood Negative Urine Nitrate Negative Urine Bilirubin Negative Urine Urobilinogen 0.2 Ur Leukocyte Esterase 3+ H Urine RBC None seen Urine WBC 10-30/hpf H Ur Squamous Epith Cells 5-10 /hpf H Urine Bacteria Many (>30) H Ur Culture Indicated? Specimen cultured Vol Urine Centrifuged 10ml (spun) Assessment and Plan Assessment and Plan Assessment and Plan narrative: A: 33yo at 29weeks 5days labor Urinary tract infection awaiting culture GBS unknown FFN positive S/p Terbutaline S/p Betamethasone x 1 dose P: UA converted to UC due to likely UTI. Speculum done for FFN followed by digital cervical exam. Ultrasound for cervical length, growth and ROWDY ordered and then cancelled. Terbutaline subQ, betamethasone x1, and ampicillin 2 g ordered stat and given. GBS swab collected. Magnesium sulfate initiated. Consult with Dr Vidal to confirm plan of care. Consult with [facility] provider re: transport of pre-term Arrange maternal transport to [facility]. Time-Based Coding :: [TOTAL MINUTES] spent with patient and on the chart (including review of chart, obtaining history, exam, reviewing outside data, placing orders, documenting exam and treatment plan, and counseling patient) on [DATE].
[2024-04-06 12:48] LABS: Add Manual Diff / Slide Review NO; Basophils Absolute Auto 0 /uL (0-100); Basophils Percent Auto 0.2 % (0-2); Eosinophils Absolute Auto 0 /uL (0-450); Eosinophils Percent Auto 0.3 % (2-4); Hemoglobin 12.4 g/dL (12.0-16.0); Lymphocytes Absolute Auto 1200 /uL (1100-4500); Lymphocytes Percent Auto 7.8 % (25-40); Mean Corpuscular HGB Conc 33.5 % (30-36); Mean Corpuscular Hemoglobin 31.8 PG (26-34); Mean Corpuscular Volume 94.9 fL (80-100); Monocytes Absolute Auto 1100 /uL (0-900); Monocytes Percent Auto 7.1 % (3-14); Neutrophils Absolute Auto 12600 /uL (1500-7000); Neutrophils Percent Auto 84.6 % (50-75); Platelet Count 225 X10^3/uL (150-400); Red Cell Distribution Width 12.8 % (11.6-14.8); White Blood Cell Count 14.9 X10^3/uL (4.5-11.0)
[2024-04-06 13:01] LABS: Alanine Aminotransferase 13 IU/L (<35); Albumin 3.9 g/dL (3.5-5.0); Albumin Globulin Ratio 1.3 (1.0-2.8); Alkaline Phosphatase 93 U/L (38-126); Aspartate Aminotransferase 24 IU/L (14-36); BUN Creatinine Ratio 14.8 (6-22); Bilirubin Total 0.4 mg/dL (0.2-1.3); Blood Urea Nitrogen 9 mg/dL (7-17); Carbon Dioxide 24 mmol/L (22-32); Chloride 104 mmol/L (98-107); Estimated Glomerular Filt Rate > 60 mL/min (>60); Globulin 3.1 g/dL (1.7-4.1); Glucose 97 mg/dL (70-100); HEMOLYSIS < 15 (0-50); Potassium 3.8 mmol/L (3.4-5.1); Sodium 134 mmol/L (137-145)
[2024-04-06 13:20] LABS: Fetal Fibronectin Positive
[2024-04-06] MEDS: AMPICILLIN 2,000 MG in SODIUM CHLORIDE 0.9% 100 ML 200 MG IV (13:23)
[2024-04-06] MEDS: LACTATED RINGERS 1,000 ML 100 ML IV (13:47)
[2024-04-06] MEDS: MAGNESIUM SULFATE 4 GM/100 ML PIGGYBACK IV (13:48)
[2024-04-06] MEDS: MAGNESIUM SULFATE 20 GM/500 ML IV.SOLN IV (14:22)
--- NOTE | 2024-04-06 15:20 | PM.OBDS.1 ---
Discharge Providers Provider Date of admission: 04/06/24 11:40 Discharge Date: 04/06/24 Primary care physician: Discharge via [facility] [place] to Dr. Hernandez at [facility] due to pre-term contractions without cervical change. Consults: 04/06/24 12:39 Consult to Anesthesiology Urgent Comment: Consulting Provider: Anesthesiologist Reason for consultation: Epidural Discharge provider: Tara Jack CNM, RADHA Summary Hospital Course Date Patient Seen: 04/06/24 Time Patient Seen: 15:30 Diagnoses: O60.00 Hospital Course: Amanda arrived to for evaluation of pre-term contractions. FFN, Terbutaline subQ, betamethasone x1, and ampicillin 2 g, Mag sulfate 4g dose, GBS swab collected. Consult with Dr Marcy MD at , pediatric provider Taylor Wren at [facility], peds transport team activated with eta 1400. Recheck SVE at 1335: 3.5/90/-2/mid position. Called [facility], spoke to steersman and Dr. Hernandez who accepted transfer. Ground transport not available for 4hours, so [facility] notified, and ETA 1530. [facility] team arrived at 1435, departed at 1515 once [facility] in the air. Discharge Diagnosis (1) uterine contractions in second trimester, antepartum: Status: Acute (2) Urinary tract infection: Status: Acute Time Spent with Patient Time attestation: Total time spent providing and/or coordinating discharge services: Objective Labs 04/06/24 12:38 04/06/24 12:38 Labs: Laboratory Results - last 24 hr 04/06/24 04/06/24 04/06/24 11:47 12:25 12:38 WBC 14.9 H RBC 3.90 L Hgb 12.4 Hct 37.0 MCV 94.9 MCH 31.8 MCHC 33.5 RDW 12.8 Plt Count 225 Neut % (Auto) 84.6 H Lymph % (Auto) 7.8 L [place] % (Auto) 7.1 Eos % (Auto) 0.3 L Baso % (Auto) 0.2 Neut # (Auto) 86124 H Lymph # (Auto) 1200 [place] # (Auto) 1100 H Eos # (Auto) 0 Baso # (Auto) 0 Sodium 134 L Potassium 3.8 Chloride 104 Carbon Dioxide 24 BUN 9 Creatinine 0.61 Estimated GFR > 60 BUN/Creatinine Ratio 14.8 Glucose 97 Calcium 9.0 Total Bilirubin 0.4 AST 24 ALT 13 Alkaline Phosphatase 93 Total Protein 7.0 Albumin 3.9 Globulin 3.1 Albumin/Globulin Ratio 1.3 Urine Color Yellow Urine Appearance Sl cloudy Urine pH 6.5 Ur Specific [place] 1.010 Urine Protein Negative Urine Glucose (UA) Negative Urine Ketones Negative Urine Occult Blood Negative Urine Nitrate Negative Urine Bilirubin Negative Urine Urobilinogen 0.2 Ur Leukocyte Esterase 3+ H Urine RBC None seen Urine WBC 10-30/hpf H Ur Squamous Epith Cells 5-10 /hpf H Urine Bacteria Many (>30) H Ur Culture Indicated? Specimen cultured Vol Urine Centrifuged 10ml (spun) Fibronectin Positive H Blood Type A Positive Antibody Screen Negative Exam Vital Signs (past 8 hours): BP: 128/70 with MAP 92 HR: 108 bpm O2sat: 97% Temp: 97.8 F Discharge Plan Discharge Plan Patient Disposition: [facility] Other facility: [facility] Antepartum unit Under care of provider: Dr. Hernandez Discharge orders & Medications Discharge Orders: Discharge (Order); Ordered 04/06/24 Ordered By: Tara Jack Follow up/Referrals: Tara Jack, CNM, TRANSMISSION MECHANIC [[facility]] - Discharge Data Attending Provider: Tara Jack Admit Date/Time: 04/06/24 11:40
[2024-04-06 15:43] LABS: Strep Grp B PCR NEG for Grp B Strep
[2024-04-06] MEDS: AMPICILLIN 1,000 MG in SODIUM CHLORIDE 0.9% 100 ML 200 MG IV (17:29)
== END 2024-04-06 17:50 | disposition short-term general hospital (02) ==
PROVIDERS: Admitting Provider Advanced Practice Midwife; Referring Provider Advanced Practice Midwife; Visit Provider Advanced Practice Midwife
DX: O60.03 Preterm labor without delivery, third trimester (principal); O23.43 Unspecified infection of urinary tract in pregnancy, third trimester; N39.0 Urinary tract infection, site not specified; Z3A.29 29 weeks gestation of pregnancy
CPT/HCPCS: 36415; 59025; 59050; 80053; 81001; 82731; 85025; 86850; 86900; 86901; 87081; 87086; 87653; 96360; 96361; 96372; G0378; G0379; J0290; J0702; J3475